=== PATIENT | female | born 1960 | race Caucasian/White ===

== ENCOUNTER 2024-04-14 08:31 | Outpatient (OUT) | payer MEDICARE, SELFPAY ==
[2024-04-14 09:29] LABS: Basophils Percent Auto 0.7 % (0.2-2.0); Eosinophils Absolute Auto 0.1 10^3/uL (0.0-0.7); Eosinophils Percent Auto 1.2 % (0.9-7.0); Hematocrit 43.6 % (36.0-48.0); Hemoglobin 14.3 g/dL (12.0-16.0); Immature Granulocytes Abs Auto 0.01 10^3/uL (0.00-0.03); Immature Granulocytes Pct Auto 0.2 % (0.0-0.5); Lymphocytes Absolute Auto 1.7 10^3/uL (1.2-3.8); Lymphocytes Percent Auto 27.9 % (20.5-60.0); Mean Corpuscular HGB Conc 32.8 g/dL (29.9-35.2); Mean Corpuscular Hemoglobin 31.1 pg (26.7-34.0); Mean Corpuscular Volume 94.8 fL (81.0-99.0); Mean Platelet Volume 10.5 fL (9.5-13.5); Monocytes Absolute Auto 0.5 10^3/uL (0.3-0.8); Monocytes Percent Auto 8.2 % (1.7-12.0); Neutrophils Absolute Auto 3.7 10^3/uL (1.4-6.5); Neutrophils Percent Auto 61.8 % (43.0-75.0); Platelet Count 192 10^3/uL (150-450); Red Cell Distribution Width 13.1 % (11.0-15.0)
--- NOTE | 2024-04-14 10:25 | XR_ITS ---
[address] [address] Patient Name: TEENA LEONARDO MRN: [id number] date: 1960 Sex: F Assigned Patient Location: [facility] Current Patient Location: [facility] Accession/Order Number: [id number] Exam Date: 04/14/2024 10:45 Report Date: 04/14/2024 11:51 At the request of: HUONG ISRAEL Procedure: XR DEXA axial skeleton EXAMINATION: XR DEXA axial skeleton, 04/14/2024 10:45 AM EDT HISTORY: Asymptomatic Menopausal Z78.0 COMPARISON: None. TECHNIQUE: Dual-energy X-ray absorptiometry (DEXA) bone density study performed for the axial skeleton. HISTORY: Asymptomatic Menopausal Z78.0 FINDINGS: Bone mineral density AP spine L1-L4 measures 1.130 g/sq cm. T score -0.4. WHO classification: Normal. Lowest bone mineral densities in the right femoral neck measuring 0.809 g/sq cm. T score -1.6. WHO classification: Osteopenia XR/XR DEXA axial skeleton IMPRESSION: Osteopenia. Moderate fracture risk Electronically authenticated by: KWASI WOODARD Date: 04/14/2024 11:51
[2024-04-14 11:25] LABS: Alanine Aminotransferase 27 U/L (14-59); Albumin Globulin Ratio 0.9; Albumin Level 3.5 g/dL (3.4-5.0); Alkaline Phosphatase 140 U/L (46-116); Anion Gap 10.4; Aspartate Amino Transferase 21 U/L (15-37); BUN Creatinine Ratio 21.2; Bilirubin Total 0.5 mg/dL (0.2-1.0); Carbon Dioxide 31.7 mmol/L (21.0-32.0); Chloride 103 mmol/L (98-107); Estimated GFR (African America >60 (>=60); Estimated GFR (Non-African Ame >60 (>=60); Globulin 3.7 g/dL; Glucose 98 mg/dL (74-106); Potassium 4.1 mmol/L (3.5-5.1); Sodium 141 mmol/L (136-145); Total Protein 7.2 g/dL (6.4-8.2)
== END 2024-04-14 08:32 | disposition home or self-care (01) ==
LOC: RAD 08:36
PROVIDERS: PCP Family Medicine; Visit Provider Family Medicine
DX: M17.0 Bilateral primary osteoarthritis of knee (principal); Z78.0 Asymptomatic menopausal state; I87.8 Other specified disorders of veins; Z12.31 Encounter for screening mammogram for malignant neoplasm of breast; M85.80 Other specified disorders of bone density and structure, unspecified site
CPT/HCPCS: 36415; 77063; 77067; 77080; 80053; 85025